=== PATIENT | female | born 1990 | race Asian ===

== ENCOUNTER 2017-01-10 20:41 | Emergency (ER) | payer OTHER ==
[~2017-01-10] VITALS: Ht 160 cm; Wt 127.0 kg
[2017-01-10 20:48] VITALS: BP 149/91; TEMP 98.6
[2017-01-10] MEDS ORDERED: CRYSELLE-2828 TABS PO (20:53)
== END 2017-01-10 21:14 | disposition home or self-care (01) ==
LOC: ED 20:41
DX: J32.8 Other chronic sinusitis (principal); R68.84 Jaw pain
CPT/HCPCS: 99281